=== PATIENT | male | born 1965 | race Caucasian/White ===

== ENCOUNTER → 2016-06-29 | Outpatient (CLI) | payer BC ==
[2016-06-29 12:05] LABS: DAYS OF ABSTINENCE 3; METHOD OF COLLECTION MANUAL MANIPULATION; SEMEN TIME OF COLLECTION 755; TYPE OF SPECIMEN CONTAINER STERILE CUP
[2016-06-29 12:06] LABS: SEMEN COLOR YELLOW-GRAY (GRY/GRYWHTE); SEMEN VOLUME 3.5 ML (>1.5); SPERM VIABILITY STAIN NOT PERFORMED % (>58%)
== END | disposition home or self-care (01) ==
LOC: C.LAB 08:08
PROVIDERS: ATTEND Urology
DX: N46.9 Male infertility, unspecified (principal)

== ENCOUNTER → 2016-12-21 | Outpatient (CLI) | payer BC ==
[2016-12-21 14:02] LABS: DAYS OF ABSTINENCE 10; METHOD OF COLLECTION MANUAL MANIPULATION; SEMEN COLOR GRAY OR GRAY-WHITE (GRY/GRYWHTE); SEMEN TIME OF COLLECTION 1245; SEMEN VOLUME 4.6 ML (>1.5); TYPE OF SPECIMEN CONTAINER STERILE CUP
[2016-12-21 14:04] LABS: SPERM VIABILITY STAIN NOT INDICATED % (>58%)
--- NOTE | 2016-12-23 20:32 | CODING QUERY NO DIAGNOSIS ---
: 1965 TREATMENT RENDERED WITHOUT A DIAGNOSIS To promote full compliance with coding requirements relating to patient care, physician participation is requested in all cases of events solutions consultant uncertainty. Please assist us with providing a diagnosis/symptom for the test(s) below: A diagnosis/symptom was not documented on your Order. A valid diagnosis/symptom is required to bill all insurances. Please remember that we are unable to code a diagnosis of rule out, probable, possible, questionable, or suspected. Tests that require a diagnosis: DOS: 12/21/16 * SEMEN ANALYSIS DIAGNOSIS: Provider Signature: Date: Thank you Janie Quijano [facility] Information Management Once completed, please kindly fax back to [phone] For questions please call [phone]
== END | disposition home or self-care (01) ==
LOC: C.LAB 13:00
PROVIDERS: ATTEND Urology
DX: N46.11 Organic oligospermia (principal)